=== PATIENT | male | born 1990 | race Caucasian/White ===

== ENCOUNTER 2024-12-19 16:48 | Emergency (ER) | payer OTHER ==
[~2024-12-19] VITALS: Ht 177.8 cm; Wt 90.0 kg
[2024-12-19 17:25] LABS: BASOPHILS 0.5 % (0.2-1.2); EOSINOPHILS 2.9 % (0.8-7.0); LYMPHOCYTES 26.1 % (21.8-53.1); MCH 24.0 PG (25.7-32.2); MCHC 32.0 g/dL (32.3-36.5); MCV 75.1 fL (79.0-92.2); MONOCYTES 13.0 % (5.3-12.2); NEUTROPHILS 57.1 % (34.0-67.9); RBC 4.58 M/uL (4.63-6.08)
[2024-12-19 17:40] LABS: ALT (SGPT) 17.0 U/L (14-59); AST (SGOT) 15.0 U/L (15-37); GLOMERULAR FILTRATION RATE,EST 93.0 mL/min (>60); PROTEIN, TOTAL 7.4 g/dL (6.4-8.2); UREA NITROGEN 23.0 mg/dL (7-18)
[2024-12-19] MEDS ORDERED: TRAZODONE HCL100 MG PO (18:59)
[2024-12-19 20:15] LABS: BLOOD/HGB, URINE NEGATIVE (Negative); KETONE, URINE NEGATIVE (Negative); LEUK ESTERASE, URINE NEGATIVE (negative); NITRITE, URINE NEGATIVE (negative)
[2024-12-19 20:43] VITALS: BP 121/83
[2024-12-19 21:40] LABS: N. GONORRRHOEAE BY PCR NOT DETECTED (NOT DETECT)
[2024-12-20] MEDS ORDERED: DIPHENHYDRAMINE50 M1 PO (02:16)
[2024-12-20] MEDS ORDERED: DEPAKOTE ER250 MG PO (02:18)
[2024-12-20] MEDS ORDERED: HYDROXYZINE HCL50 MG PO (02:19)
[2024-12-20] MEDS ORDERED: GEODON40 MG PO (02:26)
[2024-12-20] MEDS ORDERED: EFFEXOR XR150 MG PO (02:26)
[2024-12-20] MEDS ORDERED: HYDROCHLOROTHIA25 MG PO (02:28)
[2024-12-20] MEDS ORDERED: TRAZODONE HCL50 MG PO (02:30)
== END 2024-12-19 20:43 | disposition home or self-care (01) ==
LOC: ED 16:48
PROVIDERS: Emergency Medicine
DX: S01.81XA Laceration without foreign body of other part of head, initial encounter (principal); W01.198A Fall on same level from slipping, tripping and stumbling with subsequent striking against other object, initial encounter; Z79.899 Other long term (current) drug therapy; F19.90 Other psychoactive substance use, unspecified, uncomplicated
CPT/HCPCS: 36415; 51798; 70450; 80053; 81003; 85025; 99284-25